=== PATIENT | female | born 1985 | race Caucasian/White ===

== ENCOUNTER 2020-01-24 10:59 | Day surgery (SDC) | payer BC ==
[2020-01-24 11:27] VITALS: BMI 33.0
[2020-01-24 11:28] VITALS: BP 123/76; TEMP 99.8
[2020-01-24] MEDS ORDERED: hydrALAZINE 20 MG/ML VIAL SLOW IVP PRN (12:39)
--- NOTE | 2020-01-25 04:19 | SS ---
DATE OF ADMISSION: 01/24/2020 DATE OF DISCHARGE: 01/24/2020 REGULAR PHYSICIAN: Silvia Joe MD EVALUATING PHYSICIAN: Tres Acuna MD CHIEF COMPLAINT: Contractions at home. HISTORY OF PRESENT ILLNESS: Ms. Bowser is a 34-year-old G4, P1, with an estimated date of confinement of 01/29/2020, who presents complaining of uterine contractions since 9 a.m. with a small amount of bloody show. She denies ruptured membranes. Her care has been with Dr. Joe and has been without complications. PAST OBSTETRICAL HISTORY: Includes one vaginal delivery at term, one miscarriage, and one elective termination of . PAST MEDICAL HISTORY: None. PAST SURGICAL HISTORY: Appendectomy and D and C as above. CURRENT MEDICATIONS: vitamins. ALLERGIES: NO KNOWN ALLERGIES. SOCIAL HISTORY: Denies tobacco, alcohol, or drug use. FAMILY HISTORY: Unremarkable. REVIEW OF SYSTEMS: Denies nausea, vomiting, fever, chills, or ruptured membranes. PHYSICAL EXAMINATION: In triage, her; VITAL SIGNS: Stable and she is afebrile. GENERAL: She is pleasant and minimally uncomfortable. ABDOMEN: Soft, nontender, and gravid. Pelvic examination by labor nurse is 2 cm dilated, 50% effaced with the vertex at the -1 station. Uterine contractions are seen every 2 to 6 minutes. The patient is observed over 2 hours and makes no cervical change. heart rate tracing is stable. ASSESSMENT: 1. A 39-week intrauterine . 2. Prodromal labor. No evidence of active labor at this time. PLAN: The patient will be dismissed to home with labor precautions. She was told to return should her contractions get stronger or if she ruptures her membranes. She voiced understanding of her discharge instructions and was agreeable to going home. Job ID: [id number]
== END 2020-01-24 14:17 | disposition home health service, planned readmission (86) ==
LOC: L&D/OP 10:59
PROVIDERS: ATTEND Obstetrics & Gynecology
DX: O47.1 False labor at or after 37 completed weeks of gestation (principal); O09.293 Supervision of pregnancy with other poor reproductive or obstetric history, third trimester; Z3A.39 39 weeks gestation of pregnancy

== ENCOUNTER 2020-01-25 22:44 | Inpatient (IN) | payer BC ==
[~2020-01-25 22:44] MED LIST: Bupivacaine 0.25% HCL 30 ML VIAL ONE; Bupivacaine/Epinephrine 0.25% 30 ML VIAL ONE
[2020-01-25 23:15] VITALS: BMI 33.0
[2020-01-25] MEDS ORDERED: hydrALAZINE 20 MG/ML VIAL SLOW IVP PRN (23:40)
[2020-01-25] MEDS ORDERED: Promethazine HCl 25 MG/ML VIAL IM PRN (23:42)
[2020-01-25] MEDS ORDERED: Morphine 4 MG/ML VIAL IM SCH (23:59)
[2020-01-25] MEDS ORDERED: Morphine 4 MG/ML VIAL SLOW IVP SCH (23:59)
[2020-01-26] MEDS ORDERED: HYDROcodone/Acetaminophen 5/325 mg Tablet PO PRN (01:27)
[2020-01-26] MEDS ORDERED: Ondansetron PF 4 MG/2 ML Vial IVP PRN ×4 (01:27→10:52)
[2020-01-26] MEDS ORDERED: NS / Oxytocin 40 units/1000ml 1,000 ML IV PRN (01:27)
[2020-01-26] MEDS ORDERED: Lidocaine 1% (PF) 30 ML VIAL SC PRN (01:27)
[2020-01-26] MEDS ORDERED: hydrALAZINE 20 MG/ML VIAL SLOW IVP PRN ×2 (01:27→10:52)
[2020-01-26] MEDS ORDERED: Ibuprofen 800 MG TAB PO PRN (01:27)
[2020-01-26] MEDS: Lactated Ringer's 1,000 ML IV SCH ×2 (01:35→04:14)
[2020-01-26] MEDS ORDERED: Fentanyl 4 mcg/Bup 0.1% Cadd 100 ML ONE (01:46)
[2020-01-26 01:48] LABS: Hemoglobin 13.3 g/dL (12.0-16.0); Mean Corpuscular Hemoglobin 30.1 pg (27.0-31.0); Mean Corpuscular Volume 91.1 fL (78.0-98.0); Mean Platelet Volume 11.5 fL (7.4-10.4); Platelet Count 141 thou/uL (130-400); RBC Distribution Width 14.2 % (11.5-14.5); Red Blood Cell (RBC) Count 4.43 mill/uL (4.20-5.40); White Blood Cell (WBC) Count 12.6 thou/uL (4.8-10.8)
[2020-01-26] MEDS ORDERED: EPHEDRINE 25 MG/5 ML SYRINGE SLOW IVP PRN (02:23)
[2020-01-26] MEDS ORDERED: Promethazine HCl 25 MG/ML VIAL IM PRN ×2 (02:23)
[2020-01-26] MEDS ORDERED: Zolpidem Tartrate 5 MG TAB PO PRN (02:23)
[2020-01-26] MEDS ORDERED: Naloxone HCl 0.4 mg/ml Vial IVP PRN ×4 (02:23)
[2020-01-26] MEDS ORDERED: Bupivacaine 0.25% 10 ML VIAL EPIDURAL PRN (02:23)
[2020-01-26] MEDS ORDERED: diphenhydrAMINE 50 MG/ML VIAL IVP PRN ×2 (02:23)
[2020-01-26] MEDS ORDERED: Acetaminophen 325 MG TAB PO PRN (02:23)
[2020-01-26] MEDS ORDERED: diphenhydrAMINE 25 MG CAP PO PRN (02:23)
[2020-01-26] MEDS ORDERED: diphenhydrAMINE 50 MG/ML VIAL IM PRN (02:23)
[2020-01-26] MEDS ORDERED: Lactated Ringer's 500 ML IV PRN (02:23)
[2020-01-26] MEDS ORDERED: Promethazine HCl 25 MG SUPP PR PRN (02:23)
[2020-01-26 02:26] LABS: HBSAg Index 0.22 S/CO (0-0.99); Hep B Surf Ag Non-Reactive S/CO (NonReactive)
[2020-01-26] MEDS ORDERED: Communication Order-Pharmacy FS SCH ×3 (02:30)
[2020-01-26] MEDS ORDERED: Fentanyl 5 mcg/Bupivacaine 0.075% Cassette 100 ML EPIDURAL SCH (02:30)
[2020-01-26] MEDS ORDERED: Fentanyl 4 mcg/Bup 0.1% Cadd 100 ML in Premix Bag 1 BAG EPIDURAL SCH (03:16)
[2020-01-26 03:24] LABS: Syphilis Antibody Nonreactive (Nonreactive); Syphilis Antibody Index 0.04 S/CO (<1.00 Non-Reactive)
[2020-01-26] MEDS ORDERED: Dextrose 5 % And 0.9 % NaCl 1,000 ML IV SCH (07:15)
[2020-01-26] MEDS ORDERED: NS w/ Oxytocin 10 units 500 ML IV SCH (07:15)
[2020-01-26] MEDS ORDERED: Dextrose 5%-Lactated Ringers 1,000 ML IV SCH (08:15)
--- NOTE | 2020-01-26 09:08 | DN ---
DATE OF PROCEDURE: 01/26/2020 The patient delivered a male infant on 01/26/2020 at 8:32 a.m. by an uncomplicated term spontaneous vaginal delivery at 39 weeks' gestation. Apgars were 9 and 9. Weight is unavailable at the time of dictation. estimated blood loss 200 mL. Quantitative blood loss unavailable at the time of dictation. The patient had nuchal cord x2, tight, requiring transection prior to delivery of the shoulder. There was a first-degree laceration repaired of the perineum with a single [id number]. Dr. Nixon is the delivering physician. COUNTS: Correct. CONDITION: Stable to recovery room. Job ID: [id number]
[2020-01-26] MEDS ORDERED: Lanolin Ointment 7 GM TUBE TOP PRN (10:52)
[2020-01-26] MEDS ORDERED: NS / Oxytocin 40 units/1000ml 1,000 ML IV SCH (10:52)
[2020-01-26] MEDS ORDERED: Benzocaine-Menthol 82.5 ML CAN TOP PRN (10:52)
[2020-01-26] MEDS ORDERED: Bisacodyl 10 MG SUPP PR PRN (10:52)
[2020-01-26] MEDS ORDERED: Milk Of Magnesia 30 ML UDCUP PO PRN (10:52)
[2020-01-26] MEDS: Ibuprofen 800 MG TAB PO SCH ×2 (14:38→20:53)
[2020-01-26] MEDS: Ferrous Sulfate 325 MG TAB PO SCH (14:59)
[2020-01-26 17:11] LABS: SARS-CoV-2 MS2 Positive; SARS-CoV-2 N Gene Negative; SARS-CoV-2 S Gene Negative; SARS-CoV-2 by NAA Not Detected (NotDetected); SARS-CoV-2 orf1ab Negative
[2020-01-26] MEDS: Docusate Calcium (SURFAK) 240 MG CAP PO SCH (20:53)
--- NOTE | 2020-01-27 00:35 | PDOC.PP ---
Post Progress Note Post Day #: PPD1 Subjective: Resting, no complaints. PO intake tolerated: yes Flatus: yes Ambulation: yes Vital Signs (12 hours) Temp Pulse Resp BP Pulse Ox 01/26/20 20:53 98.2 F 72 16 100/57 L 99 01/26/20 14:00 98.6 F 70 18 116/73 01/26/20 12:45 98.3 F 80 18 128/65 Weight Weight 79.379 kg - Physical Examination General: NAD Respiratory: non-labored breathing Neurological: no gross focal deficits Psychiatric: normal affect Result Diagrams: 01/26/20 01:41 Additional Labs: Post Labs Blood Type O POSITIVE 01/26/20 01:41 Hep Bs Antigen Non-Reactive S/CO (NonReactive) 01/26/20 01:41 - Assessment/Plan Doing well s/p with small 3*. Pericare. Routine PP care.
[2020-01-27] MEDS: Ibuprofen 800 MG TAB PO SCH ×2 (05:07→13:40)
[2020-01-27 06:19] LABS: Hemoglobin 10.5 g/dL (12.0-16.0)
[2020-01-27] MEDS: Docusate Calcium (SURFAK) 240 MG CAP PO SCH (08:28)
[2020-01-27] MEDS: Ferrous Sulfate 325 MG TAB PO SCH (08:28)
[2020-01-27] MEDS ORDERED: Adacel (T-DAP) 0.5 ML SYRINGE IM ONE (09:00)
[2020-01-27] MEDS ORDERED: Prenatal Vitamin 1 TAB PO SCH (09:00)
[2020-01-27 09:59] VITALS: BP 110/62; TEMP 98
--- NOTE | 2020-01-27 14:40 | PDOC.BPN ---
- Brief Progress Note Patient seen this AM by Dr Melendez and cleared for DC home. RN has requested DC order. Order placed. Follow up with her MD in 1-2 weeks.
== END 2020-01-27 15:40 | disposition home or self-care (01) | DRG 807 ==
LOC: L&D/OP 22:44 → L&D 01-26 01:27 → 3SW 01-26 11:30
PROVIDERS: ADMIT Obstetrics & Gynecology; ATTEND Obstetrics & Gynecology
PROC: 10E0XZZ Delivery of Products of Conception, External Approach (ICD-10-PCS; principal; 2020-01-26)
PROC: 0HQ9XZZ Repair Perineum Skin, External Approach (ICD-10-PCS; 2020-01-26)
DX: O69.1XX0 Labor and delivery complicated by cord around neck, with compression, not applicable or unspecified (principal); Z37.0 Single live birth; Z3A.39 39 weeks gestation of pregnancy; O70.0 First degree perineal laceration during delivery
CPT/HCPCS: 36415; 51702; 85014; 85018; 85027; 86780; 86850; 86900; 86901; 87340; 87635; 99283; 99285; U0003

== ENCOUNTER 2023-11-23 10:28 | Outpatient (CLI) | payer BC | END 2023-11-23 10:29 | disposition home or self-care (01) | LOC: SCSRAD 10:28 | PROVIDERS: ATTEND Family Medicine | DX: M25.552 Pain in left hip (principal) ==